=== PATIENT | male | born 1975 | race Caucasian/White ===

== ENCOUNTER 2017-03-18 11:59 | Emergency (ER) | payer OTHER ==
[2017-03-18] MEDS ORDERED: Lidocaine 2% 20 ML MDV INFILT ONE (12:00)
[2017-03-18 12:20] VITALS: BP 139/99
[2017-03-18] MEDS ORDERED: Lidocaine 2% 10 ML Amp INJECT ONE (12:22)
--- NOTE | 2017-03-18 13:00 | EDM.PDOC ---
ED HPI GENERAL MEDICAL PROBLEM - General Chief Complaint: Laceration Stated Complaint: RT THUMB Time Seen by Provider: 03/18/17 12:54 Source of Information: Reports: Patient History Limitations: Reports: No Limitations - History of Present Illness INITIAL COMMENTS - FREE TEXT/NARRATIVE: c/o thumb lac thumb cut on bandsaw, cutting a antler, thinks debris may be on the inside, last Td unknown did bleed a fair amount Right 1-Thumb Pain Score (Numeric/FACES): 1 - Related Data Allergies Allergy/AdvReac Type Severity Reaction Status Date / Time No Known Allergies Allergy Verified 04/14/13 01:13 Home Meds: Home Meds Methylphenidate [Ritalin SR] 30 mg PO DAILY 04/14/13 [History] Cephalexin 500 mg PO TID #9 tablet 03/18/17 [Rx] DULoxetine [Cymbalta] 30 mg PO DAILY 03/18/17 [History] hydrOXYzine Pamoate [Vistaril] 50 mg PO PRN 03/18/17 [History] Past Medical History - Past Health History Medical/Surgical History: Denies Medical/Surgical History Social & Family History - Tobacco Use Smoking Status *Q: Never Smoker - Alcohol Use Days Per Week of Alcohol Use: 0 (dry alcoholic) Number of Drinks Per Day: 0 Total Drinks Per Week: 0 - Recreational Drug Use Recreational Drug Use: No - Living Situation & Occupation Living situation: Reports: Occupation: Employed ED ROS GENERAL - Review of Systems Review Of Systems: See Below Constitutional: Reports: No Symptoms HEENT: Reports: No Symptoms Respiratory: Reports: No Symptoms Cardiovascular: Reports: No Symptoms Endocrine: Reports: No Symptoms GI/Abdominal: Reports: No Symptoms : Reports: No Symptoms Musculoskeletal: Reports: No Symptoms Skin: Reports: Wound Neurological: Reports: No Symptoms Psychiatric: Reports: No Symptoms Hematologic/Lymphatic: Reports: No Symptoms Immunologic: Reports: No Symptoms ED EXAM, SKIN/RASH Exam: See Below Exam Limited By: No Limitations General Appearance: Alert, WD/WN, No Apparent Distress Skin: Other (R thumb with a 1 cm angled lac adjacent to nail, just into adipose tissue, no nail injury, no bone injury, moderate amount RBC on hand, no active bleeding here, digit block done with 2% lido without with 9 cc, complete block, flap peeled back and cleaned x 8 with NS and gauze, no f.b. noted, edges well apposed, tincture benzoin and SS applied) Course - Vital Signs Last Recorded V/S: Last Vital Signs Temp Pulse 74 03/18/17 12:18 Resp 13 03/18/17 12:18 BP 139/99 H 03/18/17 12:18 Pulse Ox 96 03/18/17 12:18 - Orders/Labs/Meds Meds: Medications Discontinued Medications Generic Name Dose Route Start Last Admin Trade Name Mary PRN Reason Stop Dose Admin Lidocaine HCl 10 ml 03/18/17 12:22 Xylocaine-Mpf 2% (Sterile-Uli) INJECT 03/18/17 12:23 ONETIME ONE Departure - Departure Time of Disposition: 12:58 Disposition: Home, Self-Care 01 Condition: Good Clinical Impression: Laceration of right thumb - Discharge Information Prescriptions: Cephalexin 500 mg PO TID #9 tablet Instructions: Laceration Care, Adult, [id number] Referrals: Billy Spring MD [Primary Care Provider] - Forms: ED Department Discharge, ED Return to Work/School Form Additional Instructions: Keep clean and dry and covered with bandaids for 5 days. May work without restriction. To decrease risk of infection, take cephalexin 500 mg 1 tab 3 times a day for 3 days. See a physician the same day for any increase in redness, swelling, pain, warmth , drainage or fever.
[2017-03-18] MEDS ORDERED: Diphtheria,Pertussis(Acell),Tetanus Vaccine 0.5 ML SDV IM ONE (13:05)
== END 2017-03-18 13:23 | disposition home or self-care (01) ==
LOC: FB.ED 11:59
DX: S61.011A Laceration without foreign body of right thumb without damage to nail, initial encounter (principal); Z79.899 Other long term (current) drug therapy; W29.8XXA Contact with other powered hand tools and household machinery, initial encounter; Z23 Encounter for immunization
CPT/HCPCS: 64450; 90471; 90715; 99283

== ENCOUNTER 2020-05-31 15:24 | Emergency (ER) | payer OTHER ==
[2020-05-31] MEDS ORDERED: Iopamidol 755 Mg/ML 100 ML Bottle IV ONE (15:57)
--- NOTE | 2020-05-31 16:09 | EDM.PDOC ---
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 and [employer], all 3 of his employees are positive for COVID never smoked cigs or THC, no h/o asthma or pul problems, no prior CV problems has been tired for past 10d, was resting most of the day today at home last spoke with ELVA yesterday he had sweats one night only, does not think he has had a temp at home does not have a pulse oximeter he has chest discomfort in the midline that is 2-3/10, he has sob that is not severe but also new he has had a chronic mild nonproductive cough that is unchanged pt called his PCP Dr Spring today who told him to come to ED pt has not been seen by a physician since he had COVID PO 97-99% on RA here in ED - Related Data Allergies Allergy/AdvReac Type Severity Reaction Status Date / Time No Known Allergies Allergy Verified 04/14/13 01:13 Home Meds: Home Meds Citalopram Hydrobromide [Celexa] 1 DAILY 05/31/20 [History] traZODone HCl [Trazodone HCl] PO BEDTIME 05/31/20 [History] Past Medical History - Past Health History Medical/Surgical History: Denies Medical/Surgical History Social & Family History - Caffeine Use Caffeine Use: Reports: Other - Living Situation & Occupation Living situation: Reports: Occupation: Employed ED ROS GENERAL - Review of Systems Review Of Systems: See Below Constitutional: Reports: No Symptoms HEENT: Reports: No Symptoms Respiratory: Reports: Shortness of Breath, Cough. Denies: Wheezing, Pleuritic Chest Pain Cardiovascular: Reports: Chest Pain Endocrine: Reports: No Symptoms GI/Abdominal: Reports: No Symptoms : Reports: No Symptoms Musculoskeletal: Reports: No Symptoms Skin: Reports: No Symptoms Neurological: Reports: No Symptoms Psychiatric: Reports: No Symptoms Hematologic/Lymphatic: Reports: No Symptoms Immunologic: Reports: No Symptoms ED EXAM, GENERAL - Physical Exam Exam: See Below Exam Limited By: No Limitations General Appearance: Alert, WD/WN, No Apparent Distress Eye Exam: Bilateral Eye: Other (1+ red conj b/l, no swell, no d/c) Nose: Normal Inspection Throat/Mouth: Normal Inspection, Normal Lips, Normal Teeth, Normal Voice, No Airway Compromise Head: Atraumatic, Normocephalic Neck: Normal Inspection Respiratory/Chest: No Respiratory Distress, Lungs Clear, Normal Breath Sounds, No Accessory Muscle Use, Chest Non-Tender, Other (fair to good AE, symmetric, no cough, no dyspnea) Cardiovascular: Regular Rate, Rhythm, No Edema, No Gallop, No JVD, No Murmur GI/Abdominal: Soft, Non-Tender, No Organomegaly, No Distention Back Exam: Normal Inspection, Full Range of Motion. No: CVA Tenderness (R), CVA Tenderness (L) Extremities: Normal Inspection, Normal Range of Motion, Non-Tender, No Pedal Edema Neurological: Alert, Oriented, CN II-XII Intact, Normal Cognition, No Motor/Sensory Deficits Psychiatric: Normal Affect, Normal Mood Skin Exam: Warm, Dry, Intact, Normal Color, No Rash Lymphatic: No Adenopathy Course - Vital Signs Last Recorded V/S: Last Vital Signs Temp 36.8 C 05/31/20 15:25 Pulse 67 05/31/20 15:25 Resp 16 05/31/20 15:25 BP 135/95 H 05/31/20 15:25 Pulse Ox 99 05/31/20 15:25 - Orders/Labs/Meds Orders: Active Orders 24 hr Category Date Time Status EKG Documentation Completion [RC] ASDIRECTED Care 05/31/20 15:46 Active Ang Chest [CT] Stat Exams 05/31/20 15:47 Ordered EKG 12 Lead [EK] Routine Ther 05/31/20 15:46 Ordered Labs: Laboratory Tests 05/31/20 05/31/20 05/31/20 Range/Units 16:00 16:00 16:00 WBC 3.7 (3.2-10.1) x10-3/uL RBC 5.88 (3.90-5.90) x10(6)uL Hgb 17.4 (12.9-17.7) g/dL Hct 50.9 H (38.3-50.1) % MCV 86.7 (80.8-98.7) fL MCH 29.5 (27.0-33.3) pg MCHC 34.1 (28.7-35.3) g/dL RDW 13.2 (12.4-15.0) % Plt Count 221 (117-477) x10(3)uL MPV 8.2 (6.7-11.0) fL Neut % (Auto) 52.6 (40.3-71.8) % Lymph % (Auto) 32.9 (15.8-45.3) % Curry % (Auto) 11.2 (5.5-15.2) % Eos % (Auto) 2.6 (0.1-6.8) % Baso % (Auto) 0.7 (0.3-3.8) % Neut # (Auto) 1.9 (1.7-6.9) x10-3/uL Lymph # (Auto) 1.2 (0.5-4.5) x10-3/uL Curry # (Auto) 0.4 (0.0-1.2) x10-3/uL Eos # (Auto) 0.1 (0.0-0.6) x10-3/uL Baso # (Auto) 0.0 (0.0-0.3) x10-3/uL D-Dimer, Quantitative 0.45 (0.0-0.59) mg/LFEU Sodium 139 (135-145) mmol/L Potassium 4.0 (3.5-5.3) mmol/L Chloride 101 (100-110) mmol/L Carbon Dioxide 28 (21-32) mmol/L BUN 10 (7-18) mg/dL Creatinine 1.1 (0.70-1.30) mg/dL Est Cr Clr Drug Dosing TNP Estimated GFR (MDRD) > 60 (>60) BUN/Creatinine Ratio 9.1 (9-20) Glucose 106 (80-116) mg/dL Calcium 8.2 L (8.6-10.2) mg/dL Total Bilirubin 0.5 (0.1-1.3) mg/dL AST 30 H (5-25) IU/L ALT 66 H (12-36) U/L Alkaline Phosphatase 59 (56-112) IU/L Troponin I (4.0-60.3) pg/mL C-Reactive Protein (0.5-0.9) mg/dL NT-Pro-B Natriuret Pep (<=125) pg/mL Total Protein 7.7 (6.0-8.0) g/dL Albumin 4.1 (3.5-5.2) g/dL Globulin 3.6 g/dL Albumin/Globulin Ratio 1.1 05/31/20 Range/Units 16:00 WBC (3.2-10.1) x10-3/uL RBC (3.90-5.90) x10(6)uL Hgb (12.9-17.7) g/dL Hct (38.3-50.1) % MCV (80.8-98.7) fL MCH (27.0-33.3) pg MCHC (28.7-35.3) g/dL RDW (12.4-15.0) % Plt Count (117-477) x10(3)uL MPV (6.7-11.0) fL Neut % (Auto) (40.3-71.8) % Lymph % (Auto) (15.8-45.3) % Curry % (Auto) (5.5-15.2) % Eos % (Auto) (0.1-6.8) % Baso % (Auto) (0.3-3.8) % Neut # (Auto) (1.7-6.9) x10-3/uL Lymph # (Auto) (0.5-4.5) x10-3/uL Curry # (Auto) (0.0-1.2) x10-3/uL Eos # (Auto) (0.0-0.6) x10-3/uL Baso # (Auto) (0.0-0.3) x10-3/uL D-Dimer, Quantitative (0.0-0.59) mg/LFEU Sodium (135-145) mmol/L Potassium (3.5-5.3) mmol/L Chloride (100-110) mmol/L Carbon Dioxide (21-32) mmol/L BUN (7-18) mg/dL Creatinine (0.70-1.30) mg/dL Est Cr Clr Drug Dosing Estimated GFR (MDRD) (>60) BUN/Creatinine Ratio (9-20) Glucose (80-116) mg/dL Calcium (8.6-10.2) mg/dL Total Bilirubin (0.1-1.3) mg/dL AST (5-25) IU/L ALT (12-36) U/L Alkaline Phosphatase (56-112) IU/L Troponin I 5.1 (4.0-60.3) pg/mL C-Reactive Protein 0.7 (0.5-0.9) mg/dL NT-Pro-B Natriuret Pep 22 (<=125) pg/mL Total Protein (6.0-8.0) g/dL Albumin (3.5-5.2) g/dL Globulin g/dL Albumin/Globulin Ratio Meds: Medications Discontinued Medications Generic Name Dose Route Start Last Admin Trade Name Freq PRN Reason Stop Dose Admin Al Hydroxide/Mg Hydroxide 30 0 ml 05/31/20 17:05 05/31/20 17:10 ml/ Lidocaine HCl 15 ml PO 05/31/20 17:06 45 ml ONETIME ONE Administration Iopamidol 100 ml 05/31/20 15:57 05/31/20 16:34 Iopamidol 755 Mg/Ml 100 Ml Bottle IV 05/31/20 15:58 100 ml . DIRECTED ONE Administration - Re-Assessments/Exams Free Text/Narrative Re-Assessment/Exam: 05/31/20 17:28 EKG wnl trop/BNP neg chest CTA with no PE and mild infiltrates LLL d-dimer/CRP all wnl WBC is low normal (as expected) mild inc'd LFTs is old pt had complete resolution of SSCP after GI cocktail he has been quarantining in his [place]", advised he may resume usual activities Departure - Departure Time of Disposition: 17:14 Disposition: Home, Self-Care 01 Condition: Good Clinical Impression: Pneumonia due to COVID-19 virus, Gastroesophageal reflux disease - Discharge Information *PRESCRIPTION DRUG MONITORING PROGRAM REVIEWED*: Not Applicable *COPY OF PRESCRIPTION DRUG MONITORING REPORT IN PATIENT MIKEL: Not Applicable Instructions: COVID-19 Frequently Asked Questions, COVID-19, 10 Things You Can Do to Manage Your COVID-19 Symptoms at Home - [facility], Food Choices for Gastroesophageal Reflux Disease, Adult Forms: ED Department Discharge, ED Return to Work/School Form Additional Instructions: Your inflammatory markers are all normal. The chest CTA shows no blood clots or pulmonary embolism. There are still some markings at the base of the left lung where you had a viral pneumonia from COVID. There is no evidence of bacterial pneumonia or secondary infection. Your heart tests are all within normal limits. Your oxygen level is quite good. You are not showing evidence of complications of COVID. Since at least 10 days have passed since symptoms first appeared and at least 24 hours have passed since last fever without the use of fever-reducing medications, you may gradual resume usual activities although you will want to get adequate rest and give your body a chance to heal, which can still take several weeks or even months. For acid reflux, take liquid antacid 30 ml (2 tablespoons) every 4 hours as needed. To decrease acid production, take omeprazole 20 mg 1 tab daily for 7-10 days as needed. See Dr Spring in 3-4 days as needed. Call or return to Emergency Department if you are feeling worse. Sepsis Event Note (ED) - Evaluation Sepsis Screening Result: No Definite Risk - Focused Exam Vital Signs: Vital Signs Temp Pulse Resp BP Pulse Ox 05/31/20 15:25 36.8 C 67 16 135/95 H 99 - My Orders Last 24 Hours: My Active Orders 05/31/20 15:46 EKG Documentation Completion [RC] ASDIRECTED EKG 12 Lead [EK] Routine 05/31/20 15:47 Ang Chest [CT] Stat - Assessment/Plan Last 24 Hours: My Active Orders 05/31/20 15:46 EKG Documentation Completion [RC] ASDIRECTED EKG 12 Lead [EK] Routine 05/31/20 15:47 Ang Chest [CT] Stat
[2020-05-31] MEDS ORDERED: Alum Hydroxide/Mag Hydroxide 30 ML, Lidocaine 2% 15 ML PO ONE ×2 (17:05)
[2020-05-31 17:36] VITALS: BP 151/94; PULSE 64
== END 2020-05-31 17:35 | disposition home or self-care (01) ==
LOC: FB.ED 15:24
DX: U07.1 COVID-19 (principal); J12.82 Pneumonia due to coronavirus disease 2019; K21.9 Gastro-esophageal reflux disease without esophagitis
CPT/HCPCS: 36415; 71275; 80053; 83880; 84484; 85025; 85379; 86140; 93005; 93010; 99283; 99285-25; A9270-GY; Q9967

== ENCOUNTER 2022-04-01 08:33 | Day surgery (SDC) | payer OTHER ==
[2022-04-01] MEDS ORDERED: Ketamine 500 mg/10 ML MDV IV ONE (08:34)
[2022-04-01] MEDS ORDERED: Propofol 200 MG/20 ML SDV IV ONE (08:34)
[2022-04-01] MEDS ORDERED: Lactated Ringers 1,000 ML IV SCH (09:15)
[2022-04-01] MEDS ORDERED: Sodium Chloride 0.9% 10 ML Syringe FLUSH PRN (09:15)
[2022-04-01 12:33] VITALS: BP 144/83; PULSE 60
== END 2022-04-01 11:15 | disposition home or self-care (01) ==
LOC: FB.SDS 08:33
PROVIDERS: ATTEND Surgery
DX: Z12.11 Encounter for screening for malignant neoplasm of colon (principal); F32.A Depression, unspecified; Z79.899 Other long term (current) drug therapy; Z88.5 Allergy status to narcotic agent; Z98.890 Other specified postprocedural states; Z90.49 Acquired absence of other specified parts of digestive tract
CPT/HCPCS: 00812-QZ; J2704; J3490; J7120